=== PATIENT | female | born 1940 | race Caucasian/White ===

== ENCOUNTER → 2016-07-18 11:55 | Day surgery (SDC) | payer MEDICARE, OTHER ==
[~2016-07-18 11:55] MED LIST: Buffered Lidocaine 1% SYR 3ML* 3 ML/SYR SYRINGE INTRADERM ONE; Glycopyrrolate IV* 0.2 MG/ML 1 ML VIAL ONE; Lidocaine 1% INJ* 10 MG/ML 30 ML SDV ONE; Lidocaine 2% PF * 5 ML VIAL ONE; Neostigmine Methylsulfate* 2 MG/2 ML SYRINGE ONE; Propofol* 10 MG/ML 20 ML BTL IV PUSH ONE; Rocuronium* 10 MG/ML VIAL ONE; Succinylcholine* 20 MG/ML 10 ML VIAL ONE; fentaNYL* 50 MCG/ML 2 ML VIAL (100 MCG VIAL) ONE
[2016-07-18 17:02] VITALS: BP 131/71
--- NOTE | 2016-07-19 13:35 | PRO ---
BRONCHOSCOPY REPORT: DATE OF PROCEDURE: 07/18/16 DATE OF : 36 PROCEDURE PERFORMED: Bronchoscopy with endobronchial ultrasound-guided fine- needle aspiration of right hilar mass and mediastinum and hilar nodes. ANESTHESIA: General anesthesia. Please refer to anesthesiologist note for details The patient intubated with 8.5 ET tube. PREPROCEDURE DIAGNOSIS: Lobulated right hilar mass, mediastinal and hilar adenopathy. DESCRIPTION OF PROCEDURE: Informed consent was obtained from the patient prior to the procedure with the help of a [employer] physician recruiter after all the risks and benefits were thoroughly explained. The patient was intubated with size 8.5 ET tube. Please refer to anesthesiologist's note for further details. Appropriate time-out was agreed on by operating room staff. The patient was placed supine on operating room table, Venodynes, and Artem Hugger placed. Flexible Olympus bronchoscope was inserted through ET tube for airway inspection. ET tube positioning was confirmed to be 2 cm above the level of angela. Bronchoscope was then advanced into the right bronchial tree, which was inspected. No endobronchial lesions were noted. Station R10 lymph node was accessed with 3 passes. Rapid on- site evaluation was utilized. Pass 3 and 2 were found to be adequate. Right hilar mass was accessed with 3 passes. Bronchial cells and blood was noted. No lymphatic tissue was noted. Station 7 lymph node was accessed with 3 passes. Rapid on-site evaluation revealed lymphatic tissue with no abnormal cells. Station L4 lymph node was accessed with 3 passes. Adequate lymphatic tissue was noted on rapid on-site evaluation , no malignant cells were noted. R4 lymph node was accessed with 3 passes and no malignant cells were noted, passes were adequate. The patient tolerated the procedure well. The patient was extubated and seen in recovery in optimal condition. Rest all specimen was placed in CytoLyt for cell block. [id number]/[facility] #: [id number] [facility]
== END | disposition home or self-care (01) ==
LOC: OR 11:55
PROVIDERS: ATTEND Internal Medicine
DX: J98.4 Other disorders of lung (principal); G47.33 Obstructive sleep apnea (adult) (pediatric); E66.09 Other obesity due to excess calories; R06.02 Shortness of breath; E11.9 Type 2 diabetes mellitus without complications
CPT/HCPCS: 88172; 88173; 88305; J0330; J2704; J3010

== ENCOUNTER 2021-07-26 09:43 | Inpatient (IN) ==
[2021-07-26] MEDS ORDERED: Famotidine IV 10 MG/ML 2 ml VIAL (20 mg) IV SLOW PU ONE ×2 (10:02→11:31)
[2021-07-26] MEDS: Ondansetron 4 mg VIAL 2 MG/ML 2 ml VIAL IV ONE ×2 (10:23→11:17)
[2021-07-26] MEDS: Lactated Ringers 1000 ml BAG 1,000 ML IV ONE ×2 (10:23→11:18)
[2021-07-26 11:10] LABS: Urine Appearance Cloudy; Urine Bilirubin Negative (Negative); Urine Blood Negative (Negative); Urine Color Yellow; Urine Glucose Negative (Negative); Urine Ketones Negative (Negative); Urine Nitrite Negative (Negative); Urine Protein 2+(100 mg/dL) (Negative); Urine Specific Gravity 1.014 (1.002-1.030); Urine Urobilinogen Negative (Negative)
[2021-07-26 11:14] LABS: Urine Bacteria 1+ (Absent); Urine Red Blood Cell 1+(3-5/hpf) (Absent); Urine Squamous Epithelial Cell Present (Absent); Urine White Blood Cell 3+(>20/hpf) (Absent)
[2021-07-26 11:32] LABS: ABS Lymphocytes 0.8 10^3/ul (1.0-4.8); ABS Monocytes 0.3 10^3/ul (0-0.8); Eosinophil % 0.1 %; Hematocrit 45 % (35-47); Hemoglobin 14.9 g/dL (12.0-16.0); Lymphocyte % 6.9 %; Mean Corpuscular HGB Conc 33 g/dL (31-36); Mean Corpuscular Hemoglobin 29 pg (27-31); Mean Corpuscular Volume 88 fL (80-97); Mean Platelet Volume 8.7 fL (7.4-10.4); Nucleated Red Blood Cells % 0.1; Platelet Count 221 10^3/uL (150-450); Red Blood Count 5.19 10^6 /uL (3.70-4.87); Red Cell Distribution Width 15 % (10-15); White Blood Count 12.2 10^3/uL (3.5-10.8)
[2021-07-26 11:42] LABS: Albumin 4.1 g/dL (3.2-5.2); Albumin/Globulin Ratio 1.1 (1-3); C Reactive Protein 27.16 mg/L (<8.01); Calcium 9.8 mg/dL (8.6-10.3); Globulin 3.6 g/dL (2-4); Potassium 3.8 mmol/L (3.5-5.0); Total Bilirubin 1.1 mg/dL (0.2-1.0); Total Protein 7.7 g/dL (6.4-8.9); eGFR CKD-EPI 83.4 (>60)
[2021-07-26] MEDS ORDERED: Iohexol 300 (CONTRAST) 10 ML SDV IV ONE (11:54)
[2021-07-26] MEDS ORDERED: Lactated Ringers 1000 ml BAG 1,000 ML IV ONE (12:44)
[2021-07-26] MEDS ORDERED: Morphine 4 MG/ML VIAL (1 ml) IV ONE (12:44)
[2021-07-26] MEDS ORDERED: Ciprofloxacin 400mg IVPREMIX 400 MG/200 ML BAG IVPB ONE (13:24)
[2021-07-26] MEDS ORDERED: metroNIDAZOLE IV 500 MG/100ML 500 MG/100 ML BAG IVPB ONE (13:25)
[2021-07-26] MEDS ORDERED: Piperacillin/Tazobac ADVAN 3.375 GM in NS 0.9% 100 ml BAG 100 ML IV ONE (14:57)
[2021-07-26] MEDS ORDERED: Enoxaparin 40 MG/0.4 ML SYR SUBCUT SCH (15:00)
[2021-07-26] MEDS ORDERED: Zosyn per Pharmacy NOTE FOLLOW UP SCH (15:00)
[2021-07-26] MEDS: Lactated Ringers 1000 ml BAG 1,000 ML IV SCH (18:13)
[2021-07-26] MEDS: Acetaminophen IV 1 GM/100ML 100 ML IV PRN (20:20)
[2021-07-26] MEDS: oxyCODONE SR 20 mg TAB PO SCH (22:33)
[2021-07-26] MEDS: ZOSYN 3.375 GM Q8H per EXTENDED INFUSION IV SCH (22:40)
[2021-07-26] MEDS: NFT: IPRATROPIUM BR (NF)0.06% NASAL 1 SPRAY BTL BOTH NARES SCH (22:51)
[2021-07-26] MEDS: Enoxaparin 40 MG/0.4 ML SYR SUBCUT SCH (22:53)
[2021-07-27] MEDS: ZOSYN 3.375 GM Q8H per EXTENDED INFUSION IV SCH ×3 (06:01→22:59)
[2021-07-27 06:13] LABS: ABS Lymphocytes 0.6 10^3/ul (1.0-4.8); ABS Monocytes 0.8 10^3/ul (0-0.8); ABS Neutrophils 15.8 10^3/ul (1.5-7.7); Hematocrit 44 % (35-47); Hemoglobin 14.2 g/dL (12.0-16.0); Lymphocyte % 3.7 %; Mean Corpuscular HGB Conc 33 g/dL (31-36); Mean Corpuscular Hemoglobin 29 pg (27-31); Mean Corpuscular Volume 89 fL (80-97); Mean Platelet Volume 8.7 fL (7.4-10.4); Nucleated Red Blood Cells % 0.1; Platelet Count 205 10^3/uL (150-450); Red Blood Count 4.94 10^6 /uL (3.70-4.87); Red Cell Distribution Width 16 % (10-15); White Blood Count 17.3 10^3/uL (3.5-10.8)
[2021-07-27] MEDS: Lactated Ringers 1000 ml BAG 1,000 ML IV SCH (06:20)
[2021-07-27 06:26] LABS: Albumin 3.7 g/dL (3.2-5.2); Albumin/Globulin Ratio 1.1 (1-3); Calcium 9.3 mg/dL (8.6-10.3); Globulin 3.3 g/dL (2-4); Potassium 3.5 mmol/L (3.5-5.0); Total Bilirubin 2.9 mg/dL (0.2-1.0); eGFR CKD-EPI 72.4 (>60)
[2021-07-27 07:13] LABS: Direct Bilirubin 0.7 mg/dL (0.03-0.18)
[2021-07-27] MEDS: oxyCODONE SR 20 mg TAB PO SCH ×2 (09:40→22:59)
[2021-07-27] MEDS: NFT: IPRATROPIUM BR (NF)0.06% NASAL 1 SPRAY BTL BOTH NARES SCH ×2 (09:56→21:42)
[2021-07-27] MEDS: D5W 1/2 NS KCl 20 meq 1000 ml 1,000 ML IV SCH ×2 (11:15→20:05)
[2021-07-27] MEDS: Pantoprazole VIAL 40 MG VIAL IV SCH (11:17)
[2021-07-27] MEDS: Acetaminophen IV 1 GM/100ML 100 ML IV PRN ×2 (11:17→20:19)
[2021-07-27] MEDS ORDERED: Bupivacaine 0.25% EPI 200,000 30 ML SDV ONE (15:53)
[2021-07-27] MEDS ORDERED: Lidocaine 2% PF 5 ML VIAL ONE (15:56)
[2021-07-27] MEDS ORDERED: Rocuronium 50 mg VIAL 10 mg/ml 5 ml VIAL (50 mg) ONE ×2 (15:56→17:16)
[2021-07-27] MEDS ORDERED: fentaNYL 100 mcg/2 ml 50 MCG/ML VIAL ONE ×2 (15:56→18:48)
[2021-07-27] MEDS ORDERED: Propofol 10 MG/ML 20 ML BTL ONE (15:56)
[2021-07-27] MEDS ORDERED: Ondansetron 4 mg VIAL 2 MG/ML 2 ml VIAL ONE (15:56)
[2021-07-27] MEDS ORDERED: Dexamethasone IV 4 MG/ML VIAL 1 ml VIAL ONE (15:56)
[2021-07-27] MEDS ORDERED: oxyCODONE/Acetamin 5/325 mg TAB PO PRN (16:39)
[2021-07-27] MEDS ORDERED: Naloxone 0.4 mg VIAL 0.4 mg/ml 1 ml VIAL IV PRN (16:39)
[2021-07-27] MEDS ORDERED: DiMENhydriNATE IV 50 mg/ml 1 ml VIAL IV PUSH PRN (16:39)
[2021-07-27] MEDS ORDERED: Ondansetron 4 mg VIAL 2 MG/ML 2 ml VIAL IV PRN (16:39)
[2021-07-27] MEDS ORDERED: Phenylephrine 40 mcg/mL 10mL (400mcg) SYRINGE ONE (16:53)
[2021-07-27] MEDS ORDERED: HYDROmorphone 0.5 MG/0.5 ML SYRINGE ONE (17:36)
[2021-07-27] MEDS: fentaNYL 100 mcg/2 ml 50 MCG/ML VIAL IV PRN ×2 (18:50→19:06)
[2021-07-27] MEDS: Enoxaparin 40 MG/0.4 ML SYR SUBCUT SCH (22:59)
[2021-07-28] MEDS: Acetaminophen IV 1 GM/100ML 100 ML IV PRN (04:21)
[2021-07-28] MEDS: D5W 1/2 NS KCl 20 meq 1000 ml 1,000 ML IV SCH ×2 (04:24→19:53)
[2021-07-28 05:22] LABS: ABS Lymphocytes 0.7 10^3/ul (1.0-4.8); ABS Monocytes 0.9 10^3/ul (0-0.8); ABS Neutrophils 15.3 10^3/ul (1.5-7.7); Hematocrit 40 % (35-47); Hemoglobin 12.6 g/dL (12.0-16.0); Lymphocyte % 4.1 %; Mean Corpuscular HGB Conc 32 g/dL (31-36); Mean Corpuscular Hemoglobin 29 pg (27-31); Mean Corpuscular Volume 91 fL (80-97); Mean Platelet Volume 8.9 fL (7.4-10.4); Platelet Count 163 10^3/uL (150-450); Red Blood Count 4.37 10^6 /uL (3.70-4.87); Red Cell Distribution Width 16 % (10-15); White Blood Count 16.9 10^3/uL (3.5-10.8)
[2021-07-28 05:24] LABS: Albumin 2.9 g/dL (3.2-5.2); Calcium 8.4 mg/dL (8.6-10.3); Globulin 2.8 g/dL (2-4); Potassium 4.1 mmol/L (3.5-5.0); Total Bilirubin 1.4 mg/dL (0.2-1.0); Total Protein 5.7 g/dL (6.4-8.9); eGFR CKD-EPI 86.3 (>60)
[2021-07-28] MEDS: ZOSYN 3.375 GM Q8H per EXTENDED INFUSION IV SCH ×3 (06:31→23:47)
[2021-07-28] MEDS: NFT: IPRATROPIUM BR (NF)0.06% NASAL 1 SPRAY BTL BOTH NARES SCH ×2 (07:34→21:33)
[2021-07-28] MEDS: oxyCODONE SR 20 mg TAB PO SCH ×2 (07:39→21:44)
[2021-07-28] MEDS: Pantoprazole VIAL 40 MG VIAL IV SCH (07:40)
[2021-07-28] MEDS ORDERED: Lactated Ringers 1000 ml BAG 1,000 ML IV SCH (08:00)
[2021-07-28] MEDS: HYDROmorphone 1 MG/1 ML SYRINGE IV SLOW PU PRN ×2 (10:26→15:51)
[2021-07-28] MEDS: Senna TAB 8.6 mg TAB PO SCH (21:43)
[2021-07-28] MEDS: Enoxaparin 40 MG/0.4 ML SYR SUBCUT SCH (21:47)
[2021-07-29] MEDS: HYDROmorphone 1 MG/1 ML SYRINGE IV SLOW PU PRN (05:17)
[2021-07-29] MEDS: ZOSYN 3.375 GM Q8H per EXTENDED INFUSION IV SCH ×3 (06:38→21:31)
[2021-07-29] MEDS: Pantoprazole VIAL 40 MG VIAL IV SCH (09:43)
[2021-07-29] MEDS: NFT: IPRATROPIUM BR (NF)0.06% NASAL 1 SPRAY BTL BOTH NARES SCH ×2 (09:43→21:32)
[2021-07-29] MEDS: oxyCODONE SR 20 mg TAB PO SCH ×2 (09:43→21:32)
[2021-07-29] MEDS: D5W 1/2 NS KCl 20 meq 1000 ml 1,000 ML IV SCH (09:51)
[2021-07-29 10:23] LABS: ABS Eosinophils 0.1 10^3/ul (0-0.6); ABS Monocytes 0.7 10^3/ul (0-0.8); Eosinophil % 0.6 %; Hematocrit 36 % (35-47); Hemoglobin 11.8 g/dL (12.0-16.0); Lymphocyte % 8.1 %; Mean Corpuscular HGB Conc 33 g/dL (31-36); Mean Corpuscular Hemoglobin 29 pg (27-31); Mean Corpuscular Volume 89 fL (80-97); Mean Platelet Volume 8.8 fL (7.4-10.4); Nucleated Red Blood Cells % 0.1; Platelet Count 190 10^3/uL (150-450); Red Blood Count 4.08 10^6 /uL (3.70-4.87); Red Cell Distribution Width 16 % (10-15); White Blood Count 12.8 10^3/uL (3.5-10.8)
[2021-07-29 10:38] LABS: Albumin 2.8 g/dL (3.2-5.2); Albumin/Globulin Ratio 0.9 (1-3); Calcium 8.6 mg/dL (8.6-10.3); Globulin 3.1 g/dL (2-4); Potassium 4.1 mmol/L (3.5-5.0); Total Bilirubin 0.9 mg/dL (0.2-1.0); Total Protein 5.9 g/dL (6.4-8.9); eGFR CKD-EPI 86.9 (>60)
[2021-07-29] MEDS ORDERED: HYDROmorphone 1 MG/1 ML SYRINGE IV SLOW PU PRN (18:16)
[2021-07-29] MEDS: Enoxaparin 40 MG/0.4 ML SYR SUBCUT SCH (21:29)
[2021-07-29] MEDS: Senna TAB 8.6 mg TAB PO SCH (21:30)
[2021-07-30] MEDS: ZOSYN 3.375 GM Q8H per EXTENDED INFUSION IV SCH ×2 (06:07→15:05)
[2021-07-30] MEDS: oxyCODONE SR 20 mg TAB PO SCH ×2 (09:49→21:13)
[2021-07-30] MEDS: Pantoprazole VIAL 40 MG VIAL IV SCH (09:51)
[2021-07-30] MEDS: NFT: IPRATROPIUM BR (NF)0.06% NASAL 1 SPRAY BTL BOTH NARES SCH ×2 (09:52→21:14)
[2021-07-30] MEDS: cefTRIAXone 1 gm/50 mL NS BAG 1 GM/50 ML BAG IVPB SCH (14:56)
[2021-07-30] MEDS: Senna TAB 8.6 mg TAB PO SCH (21:13)
[2021-07-30] MEDS: Enoxaparin 40 MG/0.4 ML SYR SUBCUT SCH (21:14)
[2021-07-31 07:13] LABS: ABS Basophils 0.1 10^3/ul (0-0.2); ABS Eosinophils 0.3 10^3/ul (0-0.6); ABS Lymphocytes 1.2 10^3/ul (1.0-4.8); ABS Monocytes 0.7 10^3/ul (0-0.8); ABS Neutrophils 5.8 10^3/ul (1.5-7.7); Eosinophil % 3.9 %; Hematocrit 39 % (35-47); Hemoglobin 12.8 g/dL (12.0-16.0); Lymphocyte % 14.9 %; Mean Corpuscular HGB Conc 33 g/dL (31-36); Mean Corpuscular Hemoglobin 29 pg (27-31); Mean Corpuscular Volume 88 fL (80-97); Mean Platelet Volume 8.1 fL (7.4-10.4); Platelet Count 235 10^3/uL (150-450); Red Blood Count 4.43 10^6 /uL (3.70-4.87); Red Cell Distribution Width 15 % (10-15)
[2021-07-31 07:29] LABS: Potassium 4.1 mmol/L (3.5-5.0); eGFR CKD-EPI 92.7 (>60)
[2021-07-31] MEDS: oxyCODONE SR 20 mg TAB PO SCH (09:28)
[2021-07-31] MEDS ORDERED: oxyCODONE SR 20 mg TAB PO ONE (10:09)
[2021-07-31] MEDS: Pantoprazole VIAL 40 MG VIAL IV SCH (10:35)
[2021-07-31] MEDS: NFT: IPRATROPIUM BR (NF)0.06% NASAL 1 SPRAY BTL BOTH NARES SCH ×2 (10:35→21:34)
[2021-07-31] MEDS ORDERED: Polyethylene Glycol 3350 17 GM PACKET PO PRN (11:17)
[2021-07-31] MEDS: cefTRIAXone 1 gm/50 mL NS BAG 1 GM/50 ML BAG IVPB SCH (15:17)
[2021-07-31] MEDS: Enoxaparin 40 MG/0.4 ML SYR SUBCUT SCH (21:35)
[2021-07-31] MEDS: Senna TAB 8.6 mg TAB PO SCH (21:36)
[2021-07-31] MEDS: oxyCODONE SR 10 mg TAB PO SCH (21:41)
[2021-08-01 05:40] LABS: ABS Eosinophils 0.3 10^3/ul (0-0.6); ABS Lymphocytes 1.3 10^3/ul (1.0-4.8); ABS Monocytes 0.7 10^3/ul (0-0.8); ABS Neutrophils 6.4 10^3/ul (1.5-7.7); Eosinophil % 3.5 %; Hematocrit 39 % (35-47); Lymphocyte % 15.1 %; Mean Corpuscular HGB Conc 33 g/dL (31-36); Mean Corpuscular Hemoglobin 29 pg (27-31); Mean Corpuscular Volume 87 fL (80-97); Mean Platelet Volume 8.2 fL (7.4-10.4); Platelet Count 270 10^3/uL (150-450); Red Blood Count 4.52 10^6 /uL (3.70-4.87); Red Cell Distribution Width 15 % (10-15); White Blood Count 8.8 10^3/uL (3.5-10.8)
[2021-08-01 06:00] LABS: Blood Urea Nitrogen 13 mg/dL (6-24); CO2 Carbon Dioxide 29 mmol/L (22-32); Calcium 9.3 mg/dL (8.6-10.3); Chloride 103 mmol/L (101-111); Glucose 134 mg/dL (70-100); Sodium 137 mmol/L (135-145)
[2021-08-01 06:22] LABS: Anion Gap 5 mmol/L (2-11)
[2021-08-01] MEDS: NFT: IPRATROPIUM BR (NF)0.06% NASAL 1 SPRAY BTL BOTH NARES SCH ×2 (09:54→21:19)
[2021-08-01] MEDS: oxyCODONE SR 20 mg TAB PO SCH (10:12)
[2021-08-01] MEDS: Pantoprazole VIAL 40 MG VIAL IV SCH (10:13)
[2021-08-01 10:46] LABS: Potassium, Whole Blood 4.1 mmol/L (3.4-4.5)
[2021-08-01] MEDS: cefTRIAXone 1 gm/50 mL NS BAG 1 GM/50 ML BAG IVPB SCH (16:00)
[2021-08-01] MEDS: Senna TAB 8.6 mg TAB PO SCH ×2 (21:18→21:28)
[2021-08-01] MEDS: oxyCODONE SR 10 mg TAB PO SCH (21:20)
[2021-08-01] MEDS: Enoxaparin 40 MG/0.4 ML SYR SUBCUT SCH (21:21)
[2021-08-02 05:22] LABS: ABS Basophils 0.1 10^3/ul (0-0.2); ABS Eosinophils 0.4 10^3/ul (0-0.6); ABS Lymphocytes 1.8 10^3/ul (1.0-4.8); ABS Monocytes 0.8 10^3/ul (0-0.8); ABS Neutrophils 7.7 10^3/ul (1.5-7.7); Eosinophil % 3.9 %; Hematocrit 38 % (35-47); Hemoglobin 12.7 g/dL (12.0-16.0); Lymphocyte % 16.8 %; Mean Corpuscular HGB Conc 33 g/dL (31-36); Mean Corpuscular Hemoglobin 29 pg (27-31); Mean Corpuscular Volume 87 fL (80-97); Platelet Count 313 10^3/uL (150-450); Red Blood Count 4.36 10^6 /uL (3.70-4.87); Red Cell Distribution Width 15 % (10-15); White Blood Count 10.8 10^3/uL (3.5-10.8)
[2021-08-02 05:45] LABS: Calcium 9.1 mg/dL (8.6-10.3); eGFR CKD-EPI 90.7 (>60)
[2021-08-02] MEDS ORDERED: Furosemide 20 mg/2 ml IV VIAL IV SLOW PU ONE (06:49)
[2021-08-02] MEDS: NFT: IPRATROPIUM BR (NF)0.06% NASAL 1 SPRAY BTL BOTH NARES SCH ×2 (07:38→21:44)
[2021-08-02] MEDS: Amoxicillin/Clavul 875/125 TAB (Augmentin 875 tab) PO SCH ×2 (09:31→21:44)
[2021-08-02] MEDS: oxyCODONE SR 20 mg TAB PO SCH (09:35)
[2021-08-02] MEDS: Pantoprazole VIAL 40 MG VIAL IV SCH (09:47)
[2021-08-02] MEDS ORDERED: Perflutren Lipid Microsphere 3 ML VIAL ONE (12:42)
[2021-08-02] MEDS: Enoxaparin 40 MG/0.4 ML SYR SUBCUT SCH (21:44)
[2021-08-02] MEDS: Senna TAB 8.6 mg TAB PO SCH (21:44)
[2021-08-02] MEDS: oxyCODONE SR 10 mg TAB PO SCH (21:44)
[2021-08-03 05:12] LABS: ABS Basophils 0.1 10^3/ul (0-0.2); ABS Eosinophils 0.4 10^3/ul (0-0.6); ABS Lymphocytes 1.7 10^3/ul (1.0-4.8); ABS Monocytes 0.7 10^3/ul (0-0.8); ABS Neutrophils 6.9 10^3/ul (1.5-7.7); Eosinophil % 4.5 %; Hematocrit 38 % (35-47); Hemoglobin 12.6 g/dL (12.0-16.0); Lymphocyte % 17.5 %; Mean Corpuscular HGB Conc 33 g/dL (31-36); Mean Corpuscular Hemoglobin 29 pg (27-31); Mean Corpuscular Volume 88 fL (80-97); Mean Platelet Volume 8.2 fL (7.4-10.4); Platelet Count 328 10^3/uL (150-450); Red Blood Count 4.36 10^6 /uL (3.70-4.87); Red Cell Distribution Width 15 % (10-15); White Blood Count 9.8 10^3/uL (3.5-10.8)
[2021-08-03 05:31] LABS: Calcium 9.4 mg/dL (8.6-10.3); Potassium 4.1 mmol/L (3.5-5.0); eGFR CKD-EPI 91.5 (>60)
[2021-08-03] MEDS: Pantoprazole VIAL 40 MG VIAL IV SCH (08:06)
[2021-08-03] MEDS: oxyCODONE SR 20 mg TAB PO SCH (08:07)
[2021-08-03] MEDS: NFT: IPRATROPIUM BR (NF)0.06% NASAL 1 SPRAY BTL BOTH NARES SCH ×2 (08:08→20:46)
[2021-08-03] MEDS: oxyCODONE SR 10 mg TAB PO SCH (20:40)
[2021-08-03] MEDS: Enoxaparin 40 MG/0.4 ML SYR SUBCUT SCH (20:45)
[2021-08-03] MEDS: Senna TAB 8.6 mg TAB PO SCH (20:46)
[2021-08-04 06:51] LABS: Calcium 8.9 mg/dL (8.6-10.3); Potassium 4.5 mmol/L (3.5-5.0)
[2021-08-04 06:56] LABS: eGFR CKD-EPI 91.1 (>60)
[2021-08-04] MEDS ORDERED: Albuterol HFA INHALER 8 gm MDI INH PRN (07:14)
[2021-08-04] MEDS: NFT: IPRATROPIUM BR (NF)0.06% NASAL 1 SPRAY BTL BOTH NARES SCH ×2 (08:48→20:10)
[2021-08-04] MEDS: oxyCODONE SR 20 mg TAB PO SCH (09:07)
[2021-08-04] MEDS: Pantoprazole VIAL 40 MG VIAL IV SCH (09:07)
[2021-08-04] MEDS ORDERED: Furosemide 20 mg/2 ml IV VIAL IV ONE (13:00)
[2021-08-04 14:40] LABS: ABS Basophils 0.1 10^3/ul (0-0.2); ABS Eosinophils 0.4 10^3/ul (0-0.6); ABS Lymphocytes 1.4 10^3/ul (1.0-4.8); ABS Monocytes 0.6 10^3/ul (0-0.8); Eosinophil % 3.6 %; Hematocrit 38 % (35-47); Hemoglobin 12.6 g/dL (12.0-16.0); Lymphocyte % 13.2 %; Mean Corpuscular HGB Conc 33 g/dL (31-36); Mean Corpuscular Hemoglobin 29 pg (27-31); Mean Corpuscular Volume 88 fL (80-97); Mean Platelet Volume 7.9 fL (7.4-10.4); Nucleated Red Blood Cells % 0.2; Platelet Count 379 10^3/uL (150-450); Red Blood Count 4.33 10^6 /uL (3.70-4.87); Red Cell Distribution Width 15 % (10-15); White Blood Count 10.3 10^3/uL (3.5-10.8)
[2021-08-04 15:20] LABS: Albumin 3.1 g/dL (3.2-5.2); Direct Bilirubin 0.1 mg/dL (0.03-0.18); Indirect Bilirubin 0.4 mg/dL (0.3-1.0); Total Bilirubin 0.5 mg/dL (0.2-1.0)
[2021-08-04 15:26] LABS: Albumin/Globulin Ratio 0.9 (1-3); Globulin 3.3 g/dL (2-4); Total Protein 6.4 g/dL (6.4-8.9)
[2021-08-04 17:57] LABS: Rapid COVID-19 Molecular Undetected (Undetected)
[2021-08-04] MEDS: oxyCODONE SR 10 mg TAB PO SCH (20:09)
[2021-08-04] MEDS: Enoxaparin 40 MG/0.4 ML SYR SUBCUT SCH (20:10)
[2021-08-04] MEDS: Senna TAB 8.6 mg TAB PO SCH (20:10)
[2021-08-05 04:31] LABS: ABS Basophils 0.1 10^3/ul (0-0.2); ABS Eosinophils 0.3 10^3/ul (0-0.6); ABS Lymphocytes 1.8 10^3/ul (1.0-4.8); ABS Monocytes 0.6 10^3/ul (0-0.8); ABS Neutrophils 8.3 10^3/ul (1.5-7.7); Eosinophil % 2.8 %; Hematocrit 40 % (35-47); Hemoglobin 13.1 g/dL (12.0-16.0); Lymphocyte % 16.4 %; Mean Corpuscular HGB Conc 33 g/dL (31-36); Mean Corpuscular Hemoglobin 29 pg (27-31); Mean Corpuscular Volume 88 fL (80-97); Mean Platelet Volume 7.5 fL (7.4-10.4); Platelet Count 393 10^3/uL (150-450); Red Blood Count 4.52 10^6 /uL (3.70-4.87); Red Cell Distribution Width 15 % (10-15); White Blood Count 11.1 10^3/uL (3.5-10.8)
[2021-08-05 04:50] LABS: Albumin 3.2 g/dL (3.2-5.2); Albumin/Globulin Ratio 0.9 (1-3); Calcium 9.5 mg/dL (8.6-10.3); Globulin 3.6 g/dL (2-4); Magnesium 2.2 mg/dL (1.9-2.7); Potassium 4.4 mmol/L (3.5-5.0); Total Bilirubin 0.5 mg/dL (0.2-1.0); Total Protein 6.8 g/dL (6.4-8.9); eGFR CKD-EPI 88.5 (>60)
[2021-08-05] MEDS: NFT: IPRATROPIUM BR (NF)0.06% NASAL 1 SPRAY BTL BOTH NARES SCH ×2 (09:01→23:03)
[2021-08-05] MEDS: Pantoprazole VIAL 40 MG VIAL IV SCH (09:09)
[2021-08-05] MEDS: oxyCODONE SR 20 mg TAB PO SCH (09:09)
[2021-08-05 09:46] LABS: Urine Appearance Clear; Urine Bilirubin Negative (Negative); Urine Blood 1+ (Negative); Urine Color Straw; Urine Glucose Negative (Negative); Urine Ketones Negative (Negative); Urine Nitrite Negative (Negative); Urine Protein Negative (Negative); Urine Specific Gravity 1.009 (1.002-1.030); Urine Urobilinogen Negative (Negative)
[2021-08-05 10:10] LABS: Urine Bacteria Absent (Absent); Urine Red Blood Cell Trace(0-2/hpf) (Absent); Urine White Blood Cell Trace(0-5/hpf) (Absent)
[2021-08-05] MEDS: oxyCODONE SR 10 mg TAB PO SCH (22:11)
[2021-08-05] MEDS: Enoxaparin 40 MG/0.4 ML SYR SUBCUT SCH (22:17)
[2021-08-05] MEDS: Senna TAB 8.6 mg TAB PO SCH (23:04)
[2021-08-06 06:30] LABS: ABS Basophils 0.1 10^3/ul (0-0.2); ABS Eosinophils 0.2 10^3/ul (0-0.6); ABS Lymphocytes 2.2 10^3/ul (1.0-4.8); ABS Monocytes 0.5 10^3/ul (0-0.8); ABS Neutrophils 7.9 10^3/ul (1.5-7.7); Eosinophil % 2.3 %; Hematocrit 39 % (35-47); Lymphocyte % 19.8 %; Mean Corpuscular HGB Conc 33 g/dL (31-36); Mean Corpuscular Hemoglobin 29 pg (27-31); Mean Corpuscular Volume 88 fL (80-97); Mean Platelet Volume 7.8 fL (7.4-10.4); Nucleated Red Blood Cells % 0.1; Platelet Count 401 10^3/uL (150-450); Red Blood Count 4.49 10^6 /uL (3.70-4.87); Red Cell Distribution Width 15 % (10-15); White Blood Count 10.9 10^3/uL (3.5-10.8)
[2021-08-06] MEDS: NFT: IPRATROPIUM BR (NF)0.06% NASAL 1 SPRAY BTL BOTH NARES SCH ×2 (08:53→22:06)
[2021-08-06] MEDS: oxyCODONE SR 20 mg TAB PO SCH (08:57)
[2021-08-06] MEDS: Pantoprazole VIAL 40 MG VIAL IV SCH (08:58)
[2021-08-06] MEDS: oxyCODONE SR 10 mg TAB PO SCH (22:05)
[2021-08-06] MEDS: Enoxaparin 40 MG/0.4 ML SYR SUBCUT SCH (22:05)
[2021-08-06] MEDS: Senna TAB 8.6 mg TAB PO SCH (22:06)
[2021-08-07 05:50] LABS: ABS Basophils 0.1 10^3/ul (0-0.2); ABS Eosinophils 0.3 10^3/ul (0-0.6); ABS Lymphocytes 1.8 10^3/ul (1.0-4.8); ABS Monocytes 0.6 10^3/ul (0-0.8); ABS Neutrophils 7.3 10^3/ul (1.5-7.7); Eosinophil % 2.9 %; Hematocrit 37 % (35-47); Hemoglobin 12.3 g/dL (12.0-16.0); Lymphocyte % 17.6 %; Mean Corpuscular HGB Conc 33 g/dL (31-36); Mean Corpuscular Hemoglobin 29 pg (27-31); Mean Corpuscular Volume 88 fL (80-97); Mean Platelet Volume 7.6 fL (7.4-10.4); Platelet Count 427 10^3/uL (150-450); Red Blood Count 4.24 10^6 /uL (3.70-4.87); Red Cell Distribution Width 15 % (10-15)
[2021-08-07] MEDS: NFT: IPRATROPIUM BR (NF)0.06% NASAL 1 SPRAY BTL BOTH NARES SCH ×2 (07:30→21:52)
[2021-08-07] MEDS: oxyCODONE SR 20 mg TAB PO SCH (09:19)
[2021-08-07] MEDS: Pantoprazole VIAL 40 MG VIAL IV SCH (10:40)
[2021-08-07] MEDS: oxyCODONE SR 10 mg TAB PO SCH (21:41)
[2021-08-07] MEDS: Enoxaparin 40 MG/0.4 ML SYR SUBCUT SCH (21:44)
[2021-08-07] MEDS: Senna TAB 8.6 mg TAB PO SCH (21:50)
[2021-08-08 08:16] VITALS: BP 129/79
[2021-08-08] MEDS: NFT: IPRATROPIUM BR (NF)0.06% NASAL 1 SPRAY BTL BOTH NARES SCH (09:01)
[2021-08-08] MEDS: oxyCODONE SR 20 mg TAB PO SCH (09:03)
== END 2021-08-08 09:08 | DRG 853 ==
LOC: ED 09:43 → EDHOLD 14:51 → SUATTDRO 14:51 → SSU 15:49
PROVIDERS: ADMIT Hospitalist; ATTEND Internal Medicine

== ENCOUNTER 2021-08-08 07:08 | Inpatient (IN) ==
[2021-08-08] MEDS ORDERED: Senna TAB 8.6 mg TAB PO PRN (11:52)
[2021-08-08] MEDS ORDERED: Polyethylene Glycol 3350 17 GM PACKET PO PRN (12:02)
[2021-08-08] MEDS ORDERED: Albuterol HFA INHALER 8 gm MDI INH PRN (17:39)
[2021-08-08] MEDS: guaiFENesin 100 mg/5 ml LIQ unit dose cup PO PRN (18:23)
[2021-08-08] MEDS ORDERED: Al Hydrox/Mg Hydrox/Simet LIQ 30 ML UDC PO PRN (18:34)
[2021-08-08] MEDS ORDERED: oxyCODONE SR 10 mg TAB PO SCH (21:00)
[2021-08-08] MEDS: Enoxaparin 40 MG/0.4 ML SYR SUBCUT SCH (21:42)
[2021-08-08] MEDS: oxyCODONE SR 20 mg TAB PO SCH (21:45)
[2021-08-08] MEDS: Senna TAB 8.6 mg TAB PO SCH (22:04)
[2021-08-08] MEDS: NF: IPRATROPIUM BR (NF)0.06% NASAL 1 SPRAY BTL BOTH NARES SCH (22:13)
[2021-08-09 05:43] LABS: ABS Basophils 0.1 10^3/ul (0-0.2); ABS Eosinophils 0.3 10^3/ul (0-0.6); ABS Lymphocytes 2.1 10^3/ul (1.0-4.8); ABS Monocytes 0.5 10^3/ul (0-0.8); ABS Neutrophils 4.1 10^3/ul (1.5-7.7); Hematocrit 37 % (35-47); Hemoglobin 12.2 g/dL (12.0-16.0); Lymphocyte % 29.8 %; Mean Corpuscular HGB Conc 33 g/dL (31-36); Mean Corpuscular Hemoglobin 29 pg (27-31); Mean Corpuscular Volume 88 fL (80-97); Mean Platelet Volume 7.3 fL (7.4-10.4); Platelet Count 395 10^3/uL (150-450); Red Blood Count 4.25 10^6 /uL (3.70-4.87); Red Cell Distribution Width 15 % (10-15)
[2021-08-09 06:17] LABS: Albumin 3.2 g/dL (3.2-5.2); Calcium 9.1 mg/dL (8.6-10.3); Potassium 4.3 mmol/L (3.5-5.0); Total Bilirubin 0.5 mg/dL (0.2-1.0)
[2021-08-09 06:23] LABS: Globulin 3.1 g/dL (2-4); Total Protein 6.3 g/dL (6.4-8.9); eGFR CKD-EPI 88.5 (>60)
[2021-08-09] MEDS: oxyCODONE SR 20 mg TAB PO SCH ×2 (08:42→22:17)
[2021-08-09] MEDS: NF: IPRATROPIUM BR (NF)0.06% NASAL 1 SPRAY BTL BOTH NARES SCH ×2 (08:52→22:24)
[2021-08-09] MEDS ORDERED: oxyCODONE SR 20 mg TAB PO SCH (09:00)
[2021-08-09] MEDS: guaiFENesin 100 mg/5 ml LIQ unit dose cup PO PRN ×3 (11:05→22:38)
[2021-08-09] MEDS: Enoxaparin 40 MG/0.4 ML SYR SUBCUT SCH (22:14)
[2021-08-09] MEDS: Senna TAB 8.6 mg TAB PO SCH (22:31)
[2021-08-10] MEDS: oxyCODONE SR 20 mg TAB PO SCH ×2 (08:35→20:20)
[2021-08-10] MEDS: NF: IPRATROPIUM BR (NF)0.06% NASAL 1 SPRAY BTL BOTH NARES SCH ×2 (08:36→20:20)
[2021-08-10] MEDS: guaiFENesin 100 mg/5 ml LIQ unit dose cup PO PRN ×2 (08:38→16:13)
[2021-08-10] MEDS: Senna TAB 8.6 mg TAB PO SCH (20:21)
[2021-08-10] MEDS: Enoxaparin 40 MG/0.4 ML SYR SUBCUT SCH (20:27)
[2021-08-11] MEDS: oxyCODONE SR 20 mg TAB PO SCH ×2 (09:17→20:38)
[2021-08-11] MEDS: NF: IPRATROPIUM BR (NF)0.06% NASAL 1 SPRAY BTL BOTH NARES SCH ×2 (09:18→21:03)
[2021-08-11] MEDS ORDERED: Iohexol 350 (CONTRAST) 500 ML MDV IV ONE (17:30)
[2021-08-11] MEDS: Senna TAB 8.6 mg TAB PO SCH (20:37)
[2021-08-11] MEDS: Enoxaparin 40 MG/0.4 ML SYR SUBCUT SCH (20:40)
[2021-08-12] MEDS: oxyCODONE SR 20 mg TAB PO SCH (08:30)
[2021-08-12] MEDS: NF: IPRATROPIUM BR (NF)0.06% NASAL 1 SPRAY BTL BOTH NARES SCH (08:31)
[2021-08-12 08:47] VITALS: BP 120/62
== END 2021-08-12 12:00 | disposition home health service (06) | DRG 949 ==
LOC: PMRU 09:09
PROVIDERS: ADMIT Physical Medicine & Rehabilitation; ATTEND Physical Medicine & Rehabilitation

== ENCOUNTER 2022-03-30 15:18 | Inpatient (IN) ==
[2022-03-30] MEDS ORDERED: Furosemide 40 mg/4 ml IV VIAL IV ONE (15:53)
[2022-03-30] MEDS ORDERED: Piperacillin/Tazobac ADVAN 3.375 GM in NS 0.9% 100 ml BAG 100 ML IV ONE (15:54)
[2022-03-30 16:43] LABS: ABS Lymphocytes 1.4 10^3/ul (1.0-4.8); ABS Monocytes 0.4 10^3/ul (0-0.8); ABS Neutrophils 3.5 10^3/ul (1.5-7.7); Eosinophil % 0.7 %; Hematocrit 42 % (35-47); Hemoglobin 13.4 g/dL (12.0-16.0); Lymphocyte % 26.5 %; Mean Corpuscular HGB Conc 32 g/dL (31-36); Mean Corpuscular Hemoglobin 28 pg (27-31); Mean Corpuscular Volume 88 fL (80-97); Mean Platelet Volume 8.6 fL (7.4-10.4); Nucleated Red Blood Cells % 0.1; Platelet Count 172 10^3/uL (150-450); Red Blood Count 4.77 10^6 /uL (3.70-4.87); Red Cell Distribution Width 16 % (10-15); White Blood Count 5.4 10^3/uL (3.5-10.8)
[2022-03-30 17:20] LABS: Albumin 3.8 g/dL (3.2-5.2); Albumin/Globulin Ratio 1.2 (1-3); C Reactive Protein 33.76 mg/L (<8.01); Calcium 9.6 mg/dL (8.6-10.3); Globulin 3.2 g/dL (2-4); Potassium 4.4 mmol/L (3.5-5.0); Total Bilirubin 0.5 mg/dL (0.2-1.0)
[2022-03-30 18:08] LABS: High Sensitivity Troponin 1 Hr 6 pg/mL (<15)
[2022-03-30] MEDS ORDERED: Polyethylene Glycol 3350 17 GM PACKET PO PRN (22:14)
[2022-03-31 06:09] LABS: ABS Lymphocytes 1.5 10^3/ul (1.0-4.8); ABS Monocytes 0.4 10^3/ul (0-0.8); ABS Neutrophils 3.2 10^3/ul (1.5-7.7); Eosinophil % 0.4 %; Hematocrit 39 % (35-47); Hemoglobin 13.1 g/dL (12.0-16.0); Lymphocyte % 28.8 %; Mean Corpuscular HGB Conc 33 g/dL (31-36); Mean Corpuscular Hemoglobin 29 pg (27-31); Mean Corpuscular Volume 87 fL (80-97); Mean Platelet Volume 8.2 fL (7.4-10.4); Platelet Count 165 10^3/uL (150-450); Red Blood Count 4.52 10^6 /uL (3.70-4.87); Red Cell Distribution Width 15 % (10-15); White Blood Count 5.2 10^3/uL (3.5-10.8)
[2022-03-31 06:29] LABS: Albumin 3.5 g/dL (3.2-5.2); Albumin/Globulin Ratio 1.2 (1-3); Calcium 8.6 mg/dL (8.6-10.3); Globulin 2.9 g/dL (2-4); Total Bilirubin 0.5 mg/dL (0.2-1.0); Total Protein 6.4 g/dL (6.4-8.9)
[2022-03-31] MEDS ORDERED: Remdesivir 100 mg Vial 200 MG in NS 0.9% 250 ml 210 ML IV ONE (06:30)
[2022-03-31] MEDS ORDERED: NS 0.9% 1000 ml BAG 1,000 ML IV ONE (07:36)
[2022-03-31] MEDS: Aspirin EC 81 mg TAB.EC (enteric coated) PO SCH (07:51)
[2022-03-31] MEDS ORDERED: Iodixanol (CONTRAST) 320 MG/ML 100 ML SDV IV ONE (08:31)
[2022-03-31] MEDS: Lidocaine PATCH 5% PATCH TRANSDERM SCH (10:35)
[2022-03-31] MEDS: cefTRIAXone 1 gm/50 mL D5W 1 GM/50 ML BAG IV SCH (13:35)
[2022-03-31] MEDS: NF: IPRATROPIUM BR (NF)0.06% NASAL 1 SPRAY BTL BOTH NARES SCH (13:36)
[2022-03-31] MEDS: Fluticasone NASAL SPRAY 50MCG 16 gm SPRAY BTL INTRANASAL SCH (13:36)
[2022-03-31] MEDS: Azithromycin 500 mg/250 ml NS 500 MG/250 ML BAG IVPB SCH (13:39)
[2022-03-31] MEDS: oxyCODONE SR 20 mg TAB PO SCH (19:08)
[2022-03-31] MEDS: Enoxaparin 30 MG/0.3 ML SYR SUBCUT SCH (19:09)
[2022-04-01] MEDS: NF: IPRATROPIUM BR (NF)0.06% NASAL 1 SPRAY BTL BOTH NARES SCH ×3 (01:51→23:57)
[2022-04-01] MEDS: Fluticasone NASAL SPRAY 50MCG 16 gm SPRAY BTL INTRANASAL SCH (09:36)
[2022-04-01] MEDS: Lidocaine PATCH 5% PATCH TRANSDERM SCH (09:36)
[2022-04-01] MEDS: Aspirin EC 81 mg TAB.EC (enteric coated) PO SCH (09:37)
[2022-04-01] MEDS: Remdesivir 100 mg Vial 100 MG in NS 0.9% 250 ml 230 ML IV SCH (09:37)
[2022-04-01 10:28] LABS: ABS Lymphocytes 1.5 10^3/ul (1.0-4.8); ABS Monocytes 0.3 10^3/ul (0-0.8); ABS Neutrophils 1.6 10^3/ul (1.5-7.7); Hematocrit 42 % (35-47); Hemoglobin 13.2 g/dL (12.0-16.0); Lymphocyte % 43.3 %; Mean Corpuscular HGB Conc 32 g/dL (31-36); Mean Corpuscular Hemoglobin 28 pg (27-31); Mean Corpuscular Volume 87 fL (80-97); Mean Platelet Volume 8.3 fL (7.4-10.4); Nucleated Red Blood Cells % 0.2; Platelet Count 167 10^3/uL (150-450); Red Blood Count 4.78 10^6 /uL (3.70-4.87); Red Cell Distribution Width 15 % (10-15); White Blood Count 3.4 10^3/uL (3.5-10.8)
[2022-04-01 11:03] LABS: Calcium 8.9 mg/dL (8.6-10.3); Potassium 4.2 mmol/L (3.5-5.0)
[2022-04-01 11:08] LABS: eGFR CKD-EPI 86.1 (>60)
[2022-04-01] MEDS: cefTRIAXone 1 gm/50 mL D5W 1 GM/50 ML BAG IV SCH (12:23)
[2022-04-01] MEDS: Azithromycin 500 mg/250 ml NS 500 MG/250 ML BAG IVPB SCH (13:50)
[2022-04-01] MEDS: Enoxaparin 30 MG/0.3 ML SYR SUBCUT SCH (13:50)
[2022-04-01] MEDS: oxyCODONE SR 20 mg TAB PO SCH (22:53)
[2022-04-02] MEDS: Remdesivir 100 mg Vial 100 MG in NS 0.9% 250 ml 230 ML IV SCH (08:55)
[2022-04-02] MEDS: Lidocaine PATCH 5% PATCH TRANSDERM SCH (08:56)
[2022-04-02] MEDS: Fluticasone NASAL SPRAY 50MCG 16 gm SPRAY BTL INTRANASAL SCH (08:58)
[2022-04-02] MEDS: Aspirin EC 81 mg TAB.EC (enteric coated) PO SCH (08:58)
[2022-04-02] MEDS: NF: IPRATROPIUM BR (NF)0.06% NASAL 1 SPRAY BTL BOTH NARES SCH (08:59)
[2022-04-02] MEDS: Azithromycin 500 mg/250 ml NS 500 MG/250 ML BAG IVPB SCH (12:37)
[2022-04-02] MEDS: Enoxaparin 30 MG/0.3 ML SYR SUBCUT SCH (13:34)
[2022-04-02] MEDS: cefTRIAXone 1 gm/50 mL D5W 1 GM/50 ML BAG IV SCH (13:36)
[2022-04-02 17:32] VITALS: BP 135/64
== END 2022-04-02 17:15 | disposition home or self-care (01) | DRG 177 ==
LOC: ED 15:18 → SUATTDRO 20:37 → EDHOLD 20:37 → MEDTELE 04-01 01:22
PROVIDERS: ADMIT Hospitalist; ATTEND Internal Medicine